=== PATIENT | female | born 1995 ===

== ENCOUNTER 2018-05-13 15:41 | Inpatient (IN) | payer MEDICAID, OTHER ==
[2018-05-13 15:42] VITALS: BMI 21.6
[2018-05-13] MEDS ORDERED: Emtricitabine-Tenofovir 200 mg-300 mg Tab PO STA (16:02)
[2018-05-13] MEDS ORDERED: cefTRIAXone (Rocephin) 250 mg Inj IM STA (16:02)
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
[2018-05-13 16:23] LABS: HCG,QUALITATIVE URINE NEGATIVE (NEGATIVE)
[2018-05-13 16:27] LABS: SQUAMOUS EPITHIAL 6 /hpf (0-5); URINE BACTERIA RARE (<OCC); URINE BILIRUBIN NEGATIVE (NEGATIVE); URINE BLOOD 1+ (NEGATIVE); URINE CLARITY Clear (Clear); URINE COLOR Yellow (YELLOW); URINE GLUCOSE (UA) NORMAL (Normal); URINE LEUKOCYTE ESTERASE NEG Leu/uL (Negative); URINE PROTEIN NEGATIVE (NEGATIVE)
--- NOTE | 2018-05-13 21:00 | PCM.BM ---
<HarithaJuana Kanchan - Last Filed: 05/13/18 20:58> Treatment Plan Problems - Problems identified on initial assessmt Bipolar Date Initiated: 05/13/18 Time Initiated: 20:58 Assessment reference: NA Status: Active Depression Date Initiated: 05/13/18 Time Initiated: 20:59 Assessment reference: NA Status: Active Treatment assets and liabiliti Patient Assests: ADL independent, good support system - Milieu Protocol Maintain good personal hygiene: daily Encourage regular showers, daily Remind patient to perform daily oral care, daily Assist patient to perform ADL's Conduct patient checks and document Observation sheet: Q15 minutes Maintain personal safety: every shift Educate patient to report safety concerns to staff, every shift Monitor environment for contraband/sharps Medication safety: Monitor for expected outcome, potential side effects: every shift, Assess barriers to learning: every shift, Assess readiness for medication education: every shift <Annia Palomares - Last Filed: 05/14/18 11:56> - Diagnosis (1) Bipolar disorder Status: Acute Interventions: 05/14/18 11:56 * Assess/adjust medications daily and /or as needed * See patient on an individual basis 7x/week to assess level of manic behaviors and stability * Discuss risks, benefits, side effects and alternatives of medications *
[2018-05-13] MEDS ORDERED: Pneumococcal 23-Valent Vaccine IM ONE (22:16)
[2018-05-14] MEDS: Divalproex 500 mg DR Tab PO SCH ×2 (09:56→17:58)
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
[2018-05-15 06:54] VITALS: RESP 20; TEMP 97.5; O2SAT 95
[2018-05-15] MEDS: Divalproex 500 mg DR Tab PO SCH ×2 (10:28→18:49)
[2018-05-15 15:58] VITALS: BP 107/73; PULSE 71
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
--- NOTE | 2018-05-16 08:35 | RAD ---
Date of service: 05/15/2018 HISTORY: Transfer to [facility] COMPARISON: No prior. FINDINGS: LUNGS: The lungs are well inflated and clear. PLEURA: No pleural effusions or pneumothorax. CARDIOVASCULAR: The heart is normal in size. No aortic atherosclerotic calcification present. OSSEOUS STRUCTURES: Within normal limits for the patient's age. VISUALIZED UPPER ABDOMEN: Normal. OTHER FINDINGS: None. IMPRESSION: No active pulmonary disease.
[2018-05-16] MEDS ORDERED: Influenza Vaccine 60 MCG/0.5 ML SYR (3 yr & up) IM ONE (10:00)
[2018-05-16] MEDS ORDERED: Pneumococcal 23-Valent Vaccine IM ONE (10:00)
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
== END 2018-05-15 20:35 | DRG 750 ==
LOC: C.ER 15:41 → C.5E 16:46
PROVIDERS: ADMIT Psychiatry & Neurology Psychiatry; ATTEND Psychiatry & Neurology Psychiatry
DX: F25.0 Schizoaffective disorder, bipolar type (principal); T76.21XA Adult sexual abuse, suspected, initial encounter; F14.90 Cocaine use, unspecified, uncomplicated; Z87.891 Personal history of nicotine dependence; F32.9 Major depressive disorder, single episode, unspecified; Z79.899 Other long term (current) drug therapy; F41.9 Anxiety disorder, unspecified